=== PATIENT | male | born 1965 | race Caucasian/White ===

== ENCOUNTER 2022-07-27 18:19 | Emergency (ER) | payer SELFPAY ==
[2022-07-27 18:46] VITALS: BP 208/102; PULSE 70; RESP 20; TEMP 36.7; O2SAT 99; BMI 25.8
--- NOTE | 2022-07-27 18:52 | DI.RAD.S_ITS ---
PROCEDURE: XR WRIST LT MIN 3V INDICATIONS: fall TECHNIQUE: 4 views of the wrist were acquired. COMPARISON: None. FINDINGS: Bones: No fractures or dislocations. Mild wrist joint osteoarthritic changes are noted along radial aspect of left wrist. No suspicious bony lesions. Scaphoid view: Scaphoid is grossly intact. Soft tissues: No suspicious soft tissue calcifications. IMPRESSION: No gross acute left wrist fracture or dislocation. Left wrist osteoarthritis. Dictated by: Rubin Bhardwaj M.D. on 07/27/2022 at 19:36 Approved by: Rubin Bhardwaj M.D. on 07/27/2022 at 19:37
--- NOTE | 2022-07-27 23:06 | ED_ITS ---
HPI - Extremity Injury (Upper) General Chief Complaint: Extremity Injury, Upper Stated Complaint: lt wrist injury s/p fall Time Seen by Provider: 07/27/22 22:55 Source: patient Mode of arrival: Family Vehicle History of Present Illness HPI narrative: Patient is a healthy 57-year-old female left-hand dominant presenting today with left wrist pain. She said she slipped and fell on ice going down the stairs she fell right on her bottom landed mostly on her left wrist. She is having some intermittent pain her shoulder but decreased range of motion elbow is also within normal limits. No numbness tingling or weakness. She is been icing it. She is not taken anything for pain. Related Data Home Medications Medication Instructions Recorded Confirmed No Known Home Medications 07/27/22 07/27/22 Allergies Allergy/AdvReac Type Severity Reaction Status Date / Time No Known Drug Allergies Allergy Unverified 07/27/22 18:03 Review of Systems Review of Systems ROS Unobtainable: All systems reviewed & are unremarkable except as noted in HPI and below Patient History Social History Smoking Status: Current every day smoker Smoking Status: Current every day smoker tobacco type: cigarettes alcohol intake frequency: 0-2 drinks per day Substance Use Type: does not use Exam Initial Vital Signs Initial Vital Signs: Vital Signs Temperature 98.1 F 07/27/22 18:46 Pulse Rate 70 07/27/22 18:46 Respiratory Rate 20 07/27/22 18:46 Blood Pressure 208/102 H 07/27/22 18:46 Pulse Oximetry 99 07/27/22 18:46 Oxygen Delivery Method 07/27/22 18:46 GENERAL: Alert pleasant 57-year-old female without acute distress CARDIOVASCULAR: peripheral pulses in tact, cap refill <2 sec RESPIRATORY: No respiratory distress, speaks in full sentences without difficulty EXTREMITIES: Normal range of motion, no clubbing or edema. Neurovascularly intact Left wrist mildly swollen distal radial pulse and tacked no scaphoid tenderness able to move fingers NEUROLOGICAL: Cranial nerves II through XII grossly intact. Normal gait and speech. SKIN: Warm, dry, no petechiae, no rashes or lesions. Course Orders Ordered: ED Orders 07/27/22 18:52 XR wrist LT min 3V Stat Vital Signs Vital signs: Vital Signs - 8 hr 07/27/22 18:46 Temperature 98.1 F Pulse Rate 70 Respiratory Rate 20 Blood Pressure 208/102 H Pulse Oximetry 99 Oxygen Delivery Method Room Air MDM - Extremity Injury (Upper) Imaging Data Extremity x-ray #1: Radiologist's Impression: PROCEDURE:? XR WRIST LT MIN 3V ? INDICATIONS: fall ? TECHNIQUE:? 4 views of the wrist were acquired.? ? COMPARISON:? None. ? FINDINGS:? ? Bones:? No fractures or dislocations.? Mild wrist joint osteoarthritic changes are noted along radial aspect of left wrist.? No suspicious bony lesions.? ? Scaphoid view:? Scaphoid is grossly intact. ? Soft tissues:? No suspicious soft tissue calcifications.? ? IMPRESSION:? No gross acute left wrist fracture or dislocation.? Left wrist osteoarthritis. ? ? Dictated by: Rubin Bhardwaj M.D. on 07/27/2022 at 19:36 ? [facility] Narrative Medical decision making narrative: Patient is a 57-year-old female who presents with left wrist pain after mechanical fall. X-ray is negative for any fracture. Suspect sprain. There is no pain over the scaphoid area. She is placed in a Velcro splint. She is offered pain medication here but declines at this time. Supportive care only. Discharge Plan Departure Patient Disposition: Home Clinical Impression: Sprain and strain of wrist Instructions: DI for Wrist Sprain Activity Restrictions/Additional Instructions: *You have been diagnosed with left wrist sprain *What to do: At this time wear wrist splint as needed. Elevate ice *Continue to take medications as directed Ibuprofen 600 mg every 6 hours if needed for [id number] pain Tylenol 500 mg every 4-6 hours needed for [id number] pain *Follow up with your primary care provider in 2-3 days or call [phone] *Return to ER if you should have increasing pain numbness tingling weakness or any new, worsening or concerning symptoms Prescriptions: No Action No Known Home Medications Stand Alone Forms: Patient Portal/API
== END 2022-07-27 23:18 | disposition home or self-care (01) ==
PROVIDERS: Emergency Provider Emergency Medicine
DX: S63.502A Unspecified sprain of left wrist, initial encounter (principal); S66.912A Strain of unspecified muscle, fascia and tendon at wrist and hand level, left hand, initial encounter; W00.0XXA Fall on same level due to ice and snow, initial encounter
CPT/HCPCS: 73110; 99282; 99283